=== PATIENT | male | born 1985 | race Asian ===

== ENCOUNTER 2020-09-09 14:35 | Outpatient (CLI) | payer BC | END 2020-09-09 14:36 | disposition home or self-care (01) | LOC: CTENTCT 14:35 | PROVIDERS: ATTEND Specialist | DX: J32.8 Other chronic sinusitis (principal) | CPT/HCPCS: 70486 ==

== ENCOUNTER 2020-11-04 19:30 | Outpatient (CLI) | payer BC | END 2020-11-04 19:31 | disposition home or self-care (01) | LOC: SLEEPLAB 19:30 | PROVIDERS: ATTEND Specialist | DX: G47.33 Obstructive sleep apnea (adult) (pediatric) (principal); R53.83 Other fatigue; R06.83 Snoring; G47.00 Insomnia, unspecified; F41.9 Anxiety disorder, unspecified; G47.10 Hypersomnia, unspecified | CPT/HCPCS: 95810 ==

== ENCOUNTER 2020-11-11 19:30 | Outpatient (CLI) | payer BC | END 2020-11-11 19:31 | disposition home or self-care (01) | LOC: SLEEPLAB 19:30 | PROVIDERS: ATTEND Specialist | DX: G47.33 Obstructive sleep apnea (adult) (pediatric) (principal); R53.83 Other fatigue; R06.83 Snoring; F41.9 Anxiety disorder, unspecified; G47.00 Insomnia, unspecified; E66.9 Obesity, unspecified; G47.10 Hypersomnia, unspecified; Z68.30 Body mass index [BMI] 30.0-30.9, adult | CPT/HCPCS: 95811 ==

== ENCOUNTER 2022-05-12 07:51 | Day surgery (SDC) | payer BC ==
[2022-05-11 10:54] VITALS: BMI 31.9
[2022-05-12] MEDS ORDERED: Lidocaine 1% MPF 2 ML VIAL ONE (08:17)
[2022-05-12] MEDS ORDERED: Oxymetazoline HCl 0.05% (30 ML BOT) ONE ×2 (08:17→09:32)
[2022-05-12] MEDS ORDERED: Midazolam HCl 2 mg/2 ml Vial ONE ×2 (09:08→09:36)
[2022-05-12] MEDS ORDERED: Bacitracin Zinc Ointment 30 gm TUBE ONE (09:32)
[2022-05-12] MEDS ORDERED: Lidocaine 1% (PF) 30 ML VIAL ONE (09:32)
[2022-05-12] MEDS ORDERED: EPINEPHrine 1 MG/ML AMP ONE (09:32)
[2022-05-12] MEDS ORDERED: Fentanyl 250 MCG/5 ML VIAL ONE (09:36)
[2022-05-12] MEDS ORDERED: Rocuronium Bromide 10 MG/ML (10ML VIAL) ONE (10:00)
[2022-05-12] MEDS ORDERED: GLYCOPYRROLATE/PF 0.2 MG/ML VIAL ONE (10:00)
[2022-05-12] MEDS ORDERED: NEOSTIGMINE 3 MG/3 ML SYR 3 MG/3 ML SYRINGE ONE (10:00)
[2022-05-12] MEDS ORDERED: Ondansetron PF 4 MG/2 ML Vial ONE (10:00)
[2022-05-12] MEDS ORDERED: Dexamethasone 20 MG/5 ML VIAL ONE (10:00)
[2022-05-12] MEDS ORDERED: PROPOFOL 200 MG/20 ML VIAL ONE (10:00)
[2022-05-12] MEDS ORDERED: FENTANYL 50 MCG/ML 1 ML VIAL ONE (10:58)
[2022-05-12] MEDS ORDERED: HYDROcodone/Acetaminophen 5/325 mg Tablet ONE (12:17)
== END 2022-05-12 13:26 | disposition home or self-care (01) ==
LOC: SDC 07:51
PROVIDERS: ATTEND Specialist
DX: J01.40 Acute pansinusitis, unspecified (principal); J32.8 Other chronic sinusitis; J34.2 Deviated nasal septum; J34.3 Hypertrophy of nasal turbinates; G47.33 Obstructive sleep apnea (adult) (pediatric); K21.9 Gastro-esophageal reflux disease without esophagitis; Z79.899 Other long term (current) drug therapy; Z88.8 Allergy status to other drugs, medicaments and biological substances
CPT/HCPCS: J0171; J1100; J2001; J2250; J2405; J2704; J3010; J3490